=== PATIENT | female | born 1955 | race Caucasian/White ===

== ENCOUNTER 2025-08-12 19:39 | Emergency (ER) | payer MEDICARE, OTHER, SELFPAY ==
--- OUTSIDE RECORDS SUMMARY | 2024-10-11 11:07 | XMS_ITS | Continuity of Care Document ---
Author Organization ANDREE Castillo Address [address] [facility] [address] [place] [address] Phone Care Team Providers Care Residential Coordinator Name Role Phone No Information Unavailable Unavailable Allergies, Adverse Reactions, Alerts Substance Reaction Status Criticality BUPROPION HCL Active No Information Sulfa (Sulfonamide Antibiotics) Rash Active No Information Penicillins Rash Active No Information Advance Directives Directive Yes / No Effective Date File Name No Information Encounters Encounter Description Practice Location Reason(s) For Visit Diagnoses Date Provider Providers Copied on Encounter ANDREE Castillo, [address] [facility] [address], [place], [id number], tel:[phone] No Information 4 No Information ANDREE Castillo, [address] [facility] [address], [place], [id number], tel:[phone] [facility] No Information 4 RN RN. [address] [facility], [address], [place], [id number], [place]. tel:[phone] Family History Family Member Type Diagnosis Age At Onset No Information Payers Payer name Insurance type Covered democrat ID Authoriza tion(s) No Information Social History Type Description Quantity Date Captured Comments Sex Female Smoking Status No Information Chief Complaint And Reason For Visit No Information Reason For Referral Reason For Referral No Information History Of Present Illness Encounter Date Complaint History Of Prese nt Illness No Information Functional Status Date Functional Assessmen t No Information Instructions Date Instruction Additional Infor mation No Information Assessments Type Assessment Date No Information Patient Care Teams Name Effective Dates (start - stop) Status Members No Information
--- OUTSIDE RECORDS SUMMARY | 2024-10-11 11:07 | XMS_ITS | Continuity of Care Document ---
Author Organization ANDREE Castillo Address [address] [facility] [address] [place] [address] Phone Care Team Providers Care Machine Sweeper Brush Maker Name Role Phone No Information Unavailable Unavailable Allergies, Adverse Reactions, Alerts Substance Reaction Status Criticality BUPROPION HCL Active No Information Sulfa (Sulfonamide Antibiotics) Rash Active No Information Penicillins Rash Active No Information Advance Directives Directive Yes / No Effective Date File Name No Information Encounters Encounter Description Practice Location Reason(s) For Visit Diagnoses Date Provider Providers Copied on Encounter ANDREE Castillo, [address] [facility] [address], [place], [id number], tel:[phone] No Information 4 No Information ANDREE Castillo, [address] [facility] [address], [place], [id number], tel:[phone] [facility] No Information 4 RN RN. [address] [facility], [place], [id number], [place]. tel:[phone] Family History Family Member Type Diagnosis Age At Onset No Information Payers Payer name Insurance type Covered constitution party ID Authoriza tion(s) No Information Social History [...]
--- OUTSIDE RECORDS SUMMARY | 2025-08-07 09:51 | XMS_ITS | Encounter Summary ---
Author Organization [facility] Address [address] [place] [address] Care Team Providers Care Sole Sewer Hand Name Role Phone None, None M.D. Primary Care Provider Unavailabl e Reason for Visit * Auth/Cert (Routine) Specialty Diagnoses / Procedures Referred By Elisabeth t Referred To Contact Diagnoses LUMBAR RADICULOPATHY Procedures INJECTION OF EPIDURAL STEROID CAUDAL Referral ID Status Reason Start Date Expiration Date Visits Re quested Visits Authorized [id number] 1 1 Encounter Details Date Type Department Care Team (Late st Contact Info) Description 08/07/2025 9:51 AM CDT - 08/07/2025 10:[place] [address] Jose Parker, DKaitlynnO. [address] [place] [address] INJECTION OF EPIDURAL STEROID CAUDAL Social History Tobacco Use Types Packs/Day Years Used Date Smoking Tobacco: Every Day Cigarettes Comments No Sex and Gender Information Value Date Recorded Sex Assigned at Not on file Legal Sex Female 1:31 PM CDT Gender Identity Not on file Sexual Orientation Not on file documented as of this encounter Discharge Instructions * Discharge Instructions* Marie Granados R.N. - 08/07/2025 10:16 AM CDT Instructions On How to Care For Yourself At Home Following - Injections Activity Resume normal light duty activities. Avoid such activities as heavy lifting, heavy work, repetitivebending, or sport activities for 72 hours. Pain You may experience increased discomfort for 24-72 hours post injection. Some bruising, swelling, and tenderness at the injection site is normal. Apply ice (no heat for 48 hours) and take prescribed pain medication or Tylenol for discomfort. Diet Resume your normal diet. Medications If you received any mind-altering drugs for your procedure, you should observe the following: DO NOT drive or operate machinery for remainder of the day. DO NOT make important personal or business decisions, or sign legal documents for 24 hours. DO NOT drink any alcoholic beverages for the remainder of the day as this might increase your sedation level and your ability to think and react appropriately. When to call If any of the following symptoms occur, notify your physician: If you observe excessive swelling, redness, warmth, or any drainage from your injection site. If you develop a temperature greater than 101. If you develop uncontrolled pain. If you develop any rash. If you develop a severe headache. In case of an emergency, please go to your nearest emergency facility. Thank you for choosing [facility] for your care. * Discharge Instr - Other Orders* Marie Granados R.N. - 08/07/2025 11:01 AM CDT Your Surgical Care TEAM today: Surgeon: Dr. Parker Day Surgery Nurse: DANY Tyler & DANY Salazar Surgery Nurse: DANY Peralta documented in this encounter Medications at Time of Discharge DULoxetine (Cymbalta) 60 MG capsule Take 1 capsule by mouth once daily. As prescribed from PCP diphenhydrAMINE- acetaminophen (Tylenol PM) 25-500 MG TABS Take 1 tablet by mouth at bedtime as needed. Takes 1-2 tabs at bedtime as needed cyclobenzaprine (Flexeril) 10 MG tablet Take 1 tablet by mouth 3 times daily as needed for Spasms. Patient states takes one tablet 3x week, presecribed by [facility] ibuprofen (Motrin) 200 MG tablet Take 1 tablet by mouth every 6 hours as needed for Pain. Patient states takes daily, 3-4 tabs per day, neer over 8 morphine 15 MG IR tablet Take 1 tablet by mouth every 4 hours as needed for Pain. Takes one tab TID, prescibed by [facility] documented as of this encounter H&P Notes * Jose Parker D.O. - 08/07/2025 10:10 AM CDT Patient informed consent obtained for additional practitioner performing important tasks related tothe surgery, or examinations or invasive procedures for educational and training purposes. Role: N/A. I have reviewed the History and Physical and examined the patient. There are no changes that are relevant to the planned course of treatment. documented in this encounter Procedure Notes * Jose Parker D.O. - 08/07/2025 12:00 AM CDT DATE OF SERVICE 08/07/2025 DIAGNOSIS Lumbar radiculopathy, right greater than left side with osseous stenosis, subluxation of the lumbarspine. POSTOPERATIVE DIAGNOSIS Lumbar radiculopathy, right greater than left side with osseous stenosis, subluxation of the lumbarspine. INDICATIONS The patient has a history of persistent pain over an extended period of time that has been unresponsive to more conservative treatment including rest, exercise, analgesic medication. The patient [facility] by Shanta Torres NP, on July 13, 2025, and assessed as having lumbar radiculopathy with associated lumbar spondylosis and multilevel degenerativedisk disease, facet arthropathy. She had a broad-based far right lateral disk protrusion at L5-S1. L4-5 showed a left greater than right lateral recess narrowing and bilateral neural foraminal stenosis and a left L4-5 disk protrusion. She has been unresponsive to rest, exercise, analgesic medication, and adjunctive medications and comes in today for a lumbosacral epidural. DISCUSSION The patient is being seen at the [facility] for a fluoroscopic-guided pain interventional procedure. The risk and benefits of the procedure were explained and the patient's questions were answered to their satisfaction prior to the procedure. An informed consent was obtained and signed. An IV was not started and conscious sedation was not given. The patient's vital signs were obtained prior, during and postprocedure. The patient vital signs remained stable throughout and postprocedure. The skin was prepped and draped in a sterile fashion with chlorhexidine solution. The procedures described below were performed under fluoroscopic guidance. The patient remained alert and conversant throughout the procedure. Postprocedure they were returned to the recovery area for further observation. The fluoroscopic images obtained during the course of the procedure were saved to hard copy via PACS. CONSCIOUS SEDATION No IV conscious sedation was given during the course of the procedure. ANALGESIC EFFECT The patient's pain on admission was 8/10. Postprocedure their pain was down to 2-3/10. FLUOROSCOPY TIME 15 seconds. COMPLICATIONS None. FOLLOW-UP INSTRUCTIONS Postprocedure the patient was observed in a holding area. Vital signs were obtained. The patient was informed of the usual postprocedural symptoms such as increased local pain and/or stiffness generally over the next 24 to 72 hours. They were advised to resume their previous medications and contactus if additional pain medication is needed. Additional instructions and precautions were given pertaining to their condition. Driving, strenuous physical activity (work or recreational) was restricted the day of the procedure with anticipation they could resume their preprocedure activities within the next 24 hours. They were instructed to call our office through the 24-hour answering service if any problems arise. They were advised to contact our office to report the results of their injectionand/or any questions concerning the procedure. They were further advised schedule a follow-up appointment within the next few weeks for further evaluation and management. The patient was discharged from the outpatient facility in stable condition. The patient is being referred by Shanta Torres NP, and a copy of this report is being sentto her. The patient was advised to contact their health care provider to relate the results of the procedure and for further treatment instructions. They were also advised that they could contact myself, if they perceived they were experiencing any postprocedural signs, symptoms and/or adverse side effects. PROCEDURE Lumbosacral Epidural with Catheterization Technique to the bilateral L4-L5 and L5-S1 levels: The patient was placed in a prone position on the C-arm table with a pillow under the abdomen. The lower extremities were abducted and hips internally rotated to relax the gluteal muscles. The coccyxwas palpated with the middle finger of my nondominant hand so that the PIP joint lay between the sacral cornu just inferior to the sacral hiatus and/or the sacral hiatus was palpated. A 25 gauge 1-1/2-inch needle with 1 mL of buffered 1% lidocaine was used to anesthetize the superficial soft tissuestructures over the target site. A 18- gauge 3-inch RX Coude' curved tip spinal needle was inserted at a 45-degree angle into the sacral hiatus with the bevel of the needle turned downward. It was then advanced through the sacrococcygeal ligament until bony contact was made. The needle tip was then carefully withdrawn and disengaged from the periosteum, the angle of the needle was readjusted and turned upward. It was then redirected rostrally approximately 0.5 cm beyond the sacrococcygeal ligamen t. Once advanced into the sacral canal 1 mL of air was injected and accepted without resistance to confirm positioning of the introducer needle into the epidural space. Care was taken not to advance the needle rostrally any further than the inferior aspect of S3 vertebrae. Once the needle was satisfactorily positioned, careful aspiration was performed and found to be negative for blood or CSF fluid. A 21-gauge spring guided reinforced Versa-catheter was inserted through the introducer needle and advanced up epidural space under fluoroscopic guidance initially to the left L5-S1 level. Once correctly positioned, a lumbar epidurogram was carried out with up to 1 mL of Omnipaque 300 contrast solution. There was filling into the left L5-S1 neural foramen up to the L4-L5 intervertebral disk space and existing L5 nerve root. Once I proceeded to inject 0.5 mL of lidocaine, there were no signs of neurotoxicity, vascular, or subarachnoid uptake on epidurography, I proceeded with further manipulation of the epidural catheter. The catheter was slowly guided to the site of pathology as determined by MRI, CT, and/or patient symptoms. Upon positioning of the catheter in the appropriate location and following the absence of any subdural, subarachnoid, and/or intravascular uptake of contrast on repeat epidurogram, I proceeded with an injection of 1.0 mL of 6 mg/mL betamethasone on the left side followed by 2 mL of 1% lidocaine followed a saline flush. The catheter was withdrawn, checked for intactness. I then removed the catheter, readjusted the introducer needle, reinserted the 21-gauge spring guided reinforced Versa- catheter, advanced it up to the right L4-L5 level. Once correctly positioned, Omnipaque 300 was instilled. There was filling up into the L4-L5 neural foramen on the rightside over the L4-L5 disk posteriorly and traversing L5 nerve root and exiting L5 nerve root fillinginto the right L5-S1 neural foramen. This was followed by 2 mL of 6 mg/mL of betamethasone, 3 mL of1% lidocaine followed by saline flush. There were no signs of neurotoxicity, vascular, or subarachnoid uptake. The patient had no complications or side effects. The catheter was removed, checked for intactness. The patient remained alert and conversant throughout the procedure. Post procedure, they were returned to the recovery area for further observation. The patient was observed in the recovery area for a minimum of 30 minutes for any signs of neurologic deficits (i.e. motor weakness) and for adequate pain relief. Following the absence of any observable complications, the patient was ambulated and discharged home. Carolyn Valle V: [id number] J: [id number] c: Shanta Torres NP documented in this encounter Plan of Treatment Not on file documented as of this encounter Procedures Procedure Name Priority Date/Time Associated Diagnosis Comments XR FLUOROSCOPIC GUIDANCE IN THE OR Routine 08/07/2025 11:22 AM CDT Pain INJECTION OF EPIDURAL STEROID CAUDAL 08/07/2025 10:56 AM CDT LUMBAR RADICULOPATHY Case Notes ADJ TO 30 MIN TOTAL Special Needs 2nd signPhillips documented in this encounter Results * XR Fluoroscopic Guidance in the OR (08/07/2025 11:22 AM CDT) Narrative [facility] - 08/07/2025 11:22 AM CDT Please refer to the NOTES/TRANS Tab for FINAL DOCUMENTATION on this patient order. us Jose Parker D.O. GENERAL IMAGING Final Result [facility] [address] [place] [address] documented in this encounter Visit Diagnoses Not on filedocumented in this encounter Admitting Diagnoses Diagnosis Lumbar radiculopathy Thoracic or lumbosacral neuritis or radiculitis, unspecified documented in this encounter Administered Medications Inactive Administered Medications - up to 3 most recent administrations Medication Order MAR Action Action Date Dose Rate Site betamethasone acetate-betamethasone sodium phosphate (Celestone soluspan) injection intraop as needed, Starting on Wed08/07/25 at 1120, Until Wed08/07/25 at 1350, Routine Given $$ 08/07/2025 11:20 AM CDT 18 mg diazepam (Valium) 2 mg dose 2 mg, Oral, as needed, 2 doses, Starting on Wed08/07/25 at 1015, Until Wed08/07/25 at 1350, Agitation/Anxiety - Use 1st, Routine iohexol (Omnipaque) 300 MG/ML injection intraop as needed, Starting on Wed08/07/25 at 1119, Until Wed08/07/25 at 1350, Routine Given $$ 08/07/2025 11:20 AM CDT 3 mL Given $$ 08/07/2025 11:19 AM CDT 3 mL lidocaine (PF) (Xylocaine) 1 % 0.1-2 mL injection 0.1-2 mL, Infiltration, prn (ND), Starting on Wed08/07/25 at 1015, Until Wed08/07/25 at 1350, IV Start, Routine lidocaine (PF) (Xylocaine) 1 % 30 mL intraop as needed, Starting on Wed08/07/25 at 1120, Until Wed08/07/25 at 1350, Routine Given $$ 08/07/2025 11:20 AM CDT 10 mL documented in this encounter Active and Recently Administered Medications Times are shown in CDT. PRN Medication Order 08/05/2025 08/06/2025 08/07/2025 betamethasone acetate-betamethasone sodium phosphate (Celestone soluspan) injection intraop as needed, Starting on Wed08/07/25 at 1120, Until Wed08/07/25 at 1350, Routine 1120 (Given $$ - Pro vider: Jose Parker D.O.) diazepam (Valium) 2 mg dose 2 mg, Oral, as needed, 2 doses, Starting on Wed08/07/25 at 1015, Until Wed08/07/25 at 1350, Agitation/Anxiety - Use 1st, Routine iohexol (Omnipaque) 300 MG/ML injection intraop as needed, Starting on Wed08/07/25 at 1119, Until Wed08/07/25 at 1350, Routine 1119 (Given $$ - Pro vider: Jose Parker D.O.)1120 (Given $$ - Provider: Jose Parker D.O.) lidocaine (PF) (Xylocaine) 1 % 0.1-2 mL injection 0.1-2 mL, Infiltration, prn (ND), Starting on Wed08/07/25 at 1015, Until Wed08/07/25 at 1350, IV Start, Routine lidocaine (PF) (Xylocaine) 1 % 30 mL intraop as needed, Starting on Wed08/07/25 at 1120, Until Wed08/07/25 at 1350, Routine 1120 (Given $$ - Pro vider: Jose Parker D.O.) documented in this encounter Care Teams Sole Sewer Hand Relationship Specialty Start Date End Date None, None, Anna SAMAYOA PCP - General 04/07/24 documented as of this encounter
--- OUTSIDE RECORDS SUMMARY | 2025-08-07 10:06 | XMS_ITS | Encounter Summary ---
Author Organization [facility] Address [address] [place] [address] Care Team Providers Care Transcripter Name Role Phone None, None M.D. Primary Care Provider Unavailabl e Reason for Visit * Auth/Cert (Routine) Specialty Diagnoses / Procedures Referred By Contac t Referred To Contact Diagnoses LUMBAR RADICULOPATHY Procedures INJECTION OF EPIDURAL STEROID CAUDAL Referral ID Status Reason Start Date Expiration Date Visits Re quested Visits Authorized [id number] 1 1 Encounter Details Date Type Department Care Team (Late st Contact Info) Description 08/07/2025 10:06 AM CDT - 08/07/2025 11:41 AM CDT Hospital Encounter [address] [address] Jose Parker, AnaOKaitlynn [address] [place] [phone] Discharge Disposition: Discharge to Home Social History Tobacco Use Types Packs/Day Years Used Date Smoking Tobacco: Every Day Cigarettes Comments No Sex and Gender Information Value Date Recorded Sex Assigned at Not on file Legal Sex Female 1:31 PM CDT Gender Identity Not on file Sexual Orientation Not on file documented as of this encounter Last Filed Vital Signs Vital Sign Reading Time Taken Comments Blood Pressure 157/84 08/07/2025 11:28 AM CDT Pulse 74 08/07/2025 11:28 AM CDT Temperature 36.2 C (97.1 F) 08/07/2025 11:28 AM CDT Respiratory Rate 16 08/07/2025 11:28 AM CDT Oxygen Saturation 99% 08/07/2025 11:28 AM CDT Inhaled Oxygen Concentration - - Weight 107 kg (236 lb) 08/07/2025 10:31 AM CDT Height 162.6 cm (5' 4) 08/07/2025 10:31 AM CDT Body Mass Index 40.51 08/07/2025 10:31 AM CDT documented in this encounter Discharge Instructions * Discharge Instructions* [...] nearest emergency facility. Thank you for choosing [facility] for your care. * Discharge Instr - Other Orders* Marie Granados R.N. - 08/07/2025 11:01 AM CDT Your Surgical Care TEAM today: Surgeon: Dr. Parker Day Surgery Nurse: Nayeli RN & Marie usps letter carrier Nurse: DANY Peralta documented in this encounter [...] takes one tablet 3x week, presecribed by [facility] ibuprofen (Motrin) 200 MG tablet Take 1 tablet by mouth every 6 hours as needed for Pain. Patient states takes daily, 3-4 tabs per day, neer over 8 morphine 15 MG IR tablet Take 1 tablet by mouth every 4 hours as needed for Pain. Takes one tab TID, prescibed by [facility] documented as of this encounter H&P Notes [...] The patient is being seen at the [facility] for a fluoroscopic-guided pain interventional [...] ambulated and discharged home. Carolyn Valle V: [id number] J: [phone] c: Shanta Torres NP documented in this [...] the OR (08/07/2025 11:22 AM CDT) Narrative [facility] - 08/07/2025 11:22 AM CDT Please refer to the NOTES/TRANS Tab for FINAL DOCUMENTATION on this patient order. us Jose Parker D.O. GENERAL IMAGING Final Result Performing Organization Address City/State/[facility] Co de Phone Number [address] [address] documented in this encounter Visit Diagnoses Diagnosis Lumbar radiculopathy- Primary Thoracic or lumbosacral neuritis or radiculitis, unspecified Pain Generalized pain documented in this encounter Admitting Diagnoses Diagnosis Lumbar [...] D.O.) documented in this encounter Care Teams Transcripter Relationship Specialty Start Date End Date None, None, MJorge A SAMAYOA PCP - General 04/07/24 documented as of this encounter
[2025-08-12 19:49] VITALS: BP 135/81; PULSE 89; RESP 16; TEMP 36.6; O2SAT 97; BMI 44.4
--- NOTE | 2025-08-12 20:27 | ED_ITS ---
HPI - General Adult General Chief complaint: Diarrhea Stated complaint: Complications since cortisol shot Time Seen by Provider: 08/12/25 20:26 History of Present Illness HPI narrative: Patient here with diarrhea starting on Wednesday. Has become incontinent. No fever, no vomiting ( slightly nauseated), no blood in stool, no abdominal pain. Had a cortisone shot on Wednesday but this isn't the first time she has had this done. 69-year-old woman presenting to the emergency department now day 2 of diarrhea. To the point of incontinence. Just runs out over without any warning. Not even gurgling stomach. Does not have abdominal cramping. Has not had any fever. She has not noticed any hematochezia or melena. Is becoming thirsty. She has not really been eating as nothing really tastes good. No known exposures. Did have injections in her low back bilaterally. These were cortisone injections and were done 5 days ago. Has received these before without any issue. Did have her usual symptoms including some what sounds like facial flushing. Has discussing differential, does mention later that she has had a history of C diff. This does not have the accompanying cramping so she thinks that is unlikely. Related Data Home Medications ?Medication ?Instructions ?Recorded ?Confirmed albuterol sulfate 90 mcg/actuation 2 puff inhalation Q 6H PRN 09/21/24 09/21/24 aerosol inhaler cyclobenzaprine 10 mg tablet 10 mg PO TID 09/21/2403/10 duloxetine 60 mg capsule,delayed 60 mg PO QDAY 4 09/21/24 release lamotrigine 150 mg tablet 150 mg PO QDAY 09/21/2403/10 omeprazole 20 mg capsule,delayed 40 mg PO QDAY 4 09/21/24 release topiramate 50 mg capsule,extended 50 mg PO BID 4 09/21/24 release 24 hr Previous Rx's ?Medication ?Instructions ?Recorded morphine 15 mg tablet,extended 15 mg PO Q8H #90 tabs 1 12/12/23 release Allergies Allergy/AdvReac Type Severity Reaction Status Date / Time Penicillins Allergy Intermediate Hives Verified 09/21/24 15:37 Sulfa (Sulfonamide Allergy Intermediate Hives Verified 09/21/24 15:37 Antibiotics) rosuvastatin Allergy Unknown Swelling Verified 09/21/24 15:37 [id number] Reductase Allergy Unknown Muscle Pain Verified 09/21/24 15:37 Inhibitor bupropion AdvReac Unknown Moodiness Verified 09/21/24 15:37 meperidine (From Demerol) AdvReac Unknown Agitated Verified 09/21/24 15:37 Review of Systems Status of ROS: Reports: 6 or more systems reviewed and unremarkable except as noted in History and below PFSH [facility] Medical History Bipolar 2 disorder ?F31.81 - Bipolar II disorder (ICD-10) Allergic rhinitis ?J30.9 - Allergic rhinitis, unspecified (ICD-10) History of bone density study ?Z92.89 - Personal history of other medical treatment (ICD-10) Urinary incontinence ?R32 - Unspecified urinary incontinence (ICD-10) Right knee pain ?M25.561 - Pain in right knee (ICD-10) LEELA (obstructive sleep apnea) ?G47.33 - Obstructive sleep apnea (adult) (pediatric) (ICD-10) Morbid obesity ?E66.01 - Morbid (severe) obesity due to excess calories (ICD-10) Migraines ?G43.909 - Migraine, unspecified, not intractable, without status migrainosus (ICD-10) GERD (gastroesophageal reflux disease) ?K21.9 - Gastro-esophageal reflux disease without esophagitis (ICD-10) Fibromyalgia ?M79.7 - Fibromyalgia (ICD-10) Depression ?F32.A - Depression, unspecified (ICD-10) Chronic narcotic use ?F11.90 - Opioid use, unspecified, uncomplicated (ICD-10) Anxiety ?F41.9 - Anxiety disorder, unspecified (ICD-10) Alcoholism in remission ?F10.21 - Alcohol dependence, in remission (ICD-10) Lower leg edema ?R60.0 - Localized edema (ICD-10) Dyslipidemia ?E78.5 - Hyperlipidemia, unspecified (ICD-10) Hypertension ?I10 - Essential (primary) hypertension (ICD-10) Low back pain ?M54.50 - Low back pain, unspecified (ICD-10) Surgical History History of tubal ligation (1991) ?Z98.51 - Tubal ligation status (ICD-10) History of hysterectomy (1992) ?Z90.710 - Acquired absence of both cervix and uterus (ICD-10) History of selective injection of anesthetic agent around lumbar nerve root (~04/2024) ?Z98.890 - Other specified postprocedural states (ICD-10) Family History Father Alcohol dependence Anxiety and depression Mother Pacemaker Skin cancer Mitral valve replaced, Onset Age: 73 Sister Skin cancer Brother Diabetes Anxiety and depression Drug dependence Aunt Migraine Breast cancer, Onset Age: 82 Daughter Anxiety and depression Aunt Breast cancer, Onset Age: 40 Colon cancer, Onset Age: 75 Other Obesity Social History Narrative: , retired from daycare/retail/group homes, 4 children, in [place] Does not exercise Ex-smoker, quit 08/2024, history 7.5 pack years (15 x 0.5 packs) Does not drink alcohol quit alcohol use 40 years ago. Was alcoholic What is your current living situation?: I have a place to live at present, but am concerned about future Problems where you live: no known problems In the past 12 months, utilities in danger of being shut off: unable to answer In past 12 months, lack of transportation kept you from medical appts, meetings, work, or getting things needed for daily living: no In the past 12 mos, have been you worried that your food would run out before you had money to buy more?: unable to answer In the past 12 mos, the food you bought just didn't last and you didn't have money to buy more?: unable to answer Smoking Status: Never smoker How often do you have a drink containing alcohol: never AUDIT-C Alcohol total score: 0 Non-prescribed substance use: denies use How often does anyone, including family, friends and others, physically hurt you : never How often does anyone, including family, friends and others, insult or talk down to you: sometimes How often does anyone, including family, friends and others, threaten you with harm: sometimes How often does anyone, including family, friends and others, scream or curse at you: rarely Health Related Social Needs: housing instability, housed, with risk of homelessness (Z59.811) and Other personal risk factors, not elsewhere classified (Z91.89) Exam Narrative: Exam Narrative: Pleasant. NAD. Skin is warm and dry. She is well-perfused. No lower extremity edema. Breathing easily. Lungs are clear. Heart in regular rate and rhythm. Abdomen is soft and little uncomfortable across the low abdomen but without clear location of pain. Sites of injection in the low back would look to be likely facet location. They are not inflamed nor particularly tender. Const: Vital Signs, click to edit/add: Vital Signs - 24 hr 08/12/25 19:49 08/12/25 22:12 Temperature 97.9 F Pulse Rate 62 Pulse Rate [Pulse Oximeter] 89 Respiratory Rate 16 16 Blood Pressure 129/52 L Blood Pressure [Ri ght Upper Arm] 135/81 Pulse Oximetry 97 98 Oxygen Delivery Me thod Room Air Room Air Documenting provider has reviewed patient's vital signs: yes Course Vital Signs Vital signs: Initial Vital Signs Temperature 97.9 F 08/12/25 19:49 Temperature Source Oral 08/12/25 19:49 Pulse Rate 89 08/12/25 19:49 Respiratory Rate 16 08/12/25 19:49 Blood Pressure 135/81 08/12/25 19:49 Blood Pressure Mean 99 08/12/25 19:49 Blood Pressure Position Sitting 08/12/25 19:49 Pulse Oximetry 97 08/12/25 19:49 Oxygen Delivery Method Room Air 08/12/25 19:49 Vital Signs Temperature 97.9 F 08/12/25 19:49 Pulse Rate 89 08/12/25 19:49 Respiratory Rate 16 08/12/25 19:49 Blood Pressure 135/81 08/12/25 19:49 Pulse Oximetry 97 08/12/25 19:49 Oxygen Delivery Method Room Air 08/12/25 19:49 Temperature 97.9 F 08/12/25 19:49 Pulse Rate 62 08/12/25 22:12 Respiratory Rate 16 08/12/25 22:12 Blood Pressure 129/52 L 08/12/25 22:12 Pulse Oximetry 98 08/12/25 22:12 Oxygen Delivery Method Room Air 08/12/25 22:12 Medications Administered Medications: Discontinued Medications Generic Name Dose Route Start Last Admin Trade Name Freq PRN Reason Stop Dose Admin Sodium Chloride 1,000 mls @ 1,000 mls/hr 08/12/25 20:47 08/12/25 21:54 0.9 % Sodium Chloride 1000 Ml IV 08/12/25 21:46 Infused .Q1H ONE Infusion Loperamide HCl 4 mg 08/12/25 21:58 08/12/25 22:10 Loperamide Hcl 2 Mg Capsule PO 08/12/25 21:59 4 mg ONCE ONE Administration Medical Decision Making MDM Narrative Medical decision making narrative: As noted did reveal later that has had Clostridium difficile before. I think symptoms would seem to be less likely to be that but certainly possible. Otherwise unspecified likely viral diarrhea this point. I think less likely to have diverticulitis with possible. The lack of control of bowels that she is describing is certainly concerning in the setting of the injections although they do not appear to have been epidurals. I think will focus on some rehydration, symptom relief, and check for red flags in labs. Stool culture I did return later for rectal exam and she does have good rectal tone. IV was established and did receive a L normal saline. Did get enough for C diff but not enough for stool culture otherwise. Labs are reassuring with normal white count and with lack of significant abdominal pain I think less likely to have significant colitis. Was given a dose of loperamide as well. Is improved on reassessment. Feels able to leave the emergency department. See patient discharge plan for further discussion Stay well-hydrated. Consider those powdered electrolyte drinks in the short term if the diarrhea is continuing. Be seen for marked increase in persistent abdominal pain, associated fever, diarrhea lasting a week. As long as you are not experiencing a fever nor seeing blood in your stool, you can try loperamide to slow this up. If diarrhea is continuing, you can collect a sample and return with it for analysis/stool culture. This could also go to your clinic. Medical Records Medical records reviewed: Yes I reviewed the patient's medical records Lab Data Lab results reviewed: Yes I reviewed the patient's lab results Labs: Lab Results 08/12/25 08/12/25 Range/Units 20:47 21:50 WBC 9.12 (4.50-11.00) K/uL RBC 4.39 (4.00-5.20) m/uL Hgb 13.7 (12.0-16.0) gm/dL Hct 40.0 (33.0-51.0) % MCV 91 (80-100) fL MCH 31 (26-34) pg MCHC 34 (32-36) gm/dL RDW Coeff of Andree 12.0 (11.5-15.5) % Plt Count 373 (140-440) K/uL Neut % (Auto) 50.7 (42.0-72.0) % Lymph % (Auto) 40.7 (20-44) % [place] % (Auto) 6.7 (0.0-11.0) % Eos % (Auto) 1.4 (0.0-7.0) % Baso % (Auto) 0.2 (0.0-3.0) % Neut # (Auto) 4.62 (1.7-7.0) K/uL Lymph # (Auto) 3.71 H (0.90-2.90) K/uL [place] # (Auto) 0.60 (0.00-0.90) K/UL Eos # (Auto) 0.13 (0.00-0.50) K/uL Baso # (Auto) 0.02 (0.00-0.30) K/uL Abs Immat Gran (auto) 0.03 (0.00-0.30) K/uL Imm/Tot Granulo (auto) 0.3 % Sodium 135 (135-149) mmol/L Potassium 3.4 L (3.6-5.1) mmol/L Chloride 103 (96-114) mmol/L Carbon Dioxide 23 (20-32) mmol/L Anion Gap 9 (7-15) mEq/L BUN 13 (7-30) mg/dL Creatinine 0.8 (0.5-1.5) mg/dL Estimated Creat Clear 43.18 Estimated GFR 81 ml/min Glucose 116 H (60-115) mg/dL Calcium 8.8 (8.4-10.6) mg/dL Magnesium 1.9 (1.5-2.6) mg/dL Stl C. diff Tox B Gene Negative (Negative) Stl C. diff [id number] PRESUMPTIVE NEGATIVE (Negative) Discharge Plan Discharge Clinical Impression: Diarrhea Patient Disposition: Home w/ Parent or Adult Condition: Improved Additional Instructions: Stay well-hydrated. Consider those powdered electrolyte drinks in the short term if the diarrhea is continuing. Be seen for marked increase in persistent abdominal pain, associated fever, diarrhea lasting a week. As long as you are not experiencing a fever nor seeing blood in your stool, you can try loperamide to slow this up. If diarrhea is continuing, you can collect a sample and return with it for analysis/stool culture. This could also go to your clinic. Prescriptions: No Action topiramate 50 mg capsule,extended release 24hr 50 mg PO BID duloxetine 60 mg capsule,delayed release(DR/EC) 60 mg PO QDAY albuterol sulfate 90 mcg/actuation HFA aerosol inhaler 2 puff inhalation Q6H PRN cyclobenzaprine 10 mg tablet 10 mg PO TID omeprazole 20 mg capsule,delayed release(DR/EC) 40 mg PO QDAY lamotrigine 150 mg tablet 150 mg PO QDAY morphine 15 mg tablet extended release 15 mg PO Q8H Qty: 90 0RF Follow Up/Referrals: Vero Zamora MD [Primary Care Provider, Family Practice] Stand Alone Forms: [id number] Info Instructions
[2025-08-12 20:59] LABS: Hematocrit* 40.0 % (33.0-51.0); Hemoglobin* 13.7 gm/dL (12.0-16.0); Immature Granulocytes Abs Auto 0.03 K/uL (0.00-0.30); Immature Granulocytes Pct Auto 0.3 %; Lymphocytes Absolute Auto 3.71 K/uL (0.90-2.90); Mean Corpuscular HGB Conc 34 gm/dL (32-36); Mean Corpuscular Hemoglobin 31 pg (26-34); Mean Corpuscular Volume 91 fL (80-100); RDW Coefficient of Variation % 12.0 % (11.5-15.5); Red Blood Count* 4.39 m/uL (4.00-5.20); White Blood Count* 9.12 K/uL (4.50-11.00)
--- OUTSIDE RECORDS SUMMARY | 2025-08-12 21:10 | XMS_ITS | Clinical Summary ---
Author Organization [facility] Address [address] [place] [id number] Care Team Providers Care Hammerer Helper Name Role Phone None, None M.D. Primary Care Provider Unavailabl e Allergies Active Allergy Reactions Criticality Noted Date Comments Penicillin V Potassium Hives Medium 04/06/2024 Statins Other 04/06/2024 cramps Sulfadiazine Hives 04/06/2024 Bupropion Hcl Mental Status Changes Medium 04/06/2024 Aggression with wellbutrin Medications DULoxetine (Cymbalta) 60 MG capsule Take 1 capsule by mouth once daily. As prescribed from PCP Active diphenhydrAMINE -acetaminophen (Tylenol PM) 25-500 MG TABS Take 1 tablet by mouth at bedtime as needed. Takes 1-2 tabs at bedtime as needed Active cyclobenzaprine (Flexeril) 10 MG tablet Take 1 tablet by mouth 3 times daily as needed for Spasms. Patient states takes one tablet 3x week, presecribed by [facility] Active ibuprofen (Motrin) 200 MG tablet Take 1 tablet by mouth every 6 hours as needed for Pain. Patient states takes daily, 3-4 tabs per day, neer over 8 Active morphine 15 MG IR tablet Take 1 tablet by mouth every 4 hours as needed for Pain. Takes one tab TID, prescibed by [facility] Active Active Problems Problem Noted Date Diagnosed Date Lumbar radiculopathy 04/11/2024 Encounters Date Type Department Care Team Description 08/07/2025 10:06 AM CDT - 08/07/2025 11:41 AM CDT Hospital Encounter [facility] [address] [place] [address] Jose Parker, DDanie [phone] Discharge Disposition: Discharge to Home 08/07/2025 9:51 AM CDT - 08/07/2025 10:21 AM CDT Surgery [address] [address] Jose Parker D.O. INJECTION OF EPIDURAL STEROID CAUDAL 07/17/2025 [facility] Jose Parker D.O. from Last 3 Months Social History Tobacco Use Types Packs/Day Years Used Date Smoking Tobacco: Every Day Cigarettes Tobacco Cessation:Ready to Q uit: Not Asked; Counseling Given: Not Answered Comments No Sex and Gender Information Value Date Recorded Sex Assigned at Not on file Legal Sex Female 1:31 PM CDT Gender Identity Not on file Sexual Orientation Not on file Last Filed Vital Signs Vital Sign Reading [...] Mass Index 40.51 08/07/2025 10:31 AM CDT Plan of Treatment Health Maintenance Due Date Last Done Comments BREAST CANCER SCREENING 1957 COLOGUARD 1957 COLONOSCOPY 1957 [address] CANCER SCREENING 1957 CT COLONOGRAPHY 1957 FOBT 1957 LIPID PANEL 1957 SIGMOIDOSCOPY 1957 HEPATITIS C SCREENING 1975 RSV (60+ YEARS OF AGE or 32-36 WEEKS ) (1 - Risk 60-74 years 1-dose series) 2017 BONE DENSITY 2022 COVID-19 Vaccine ( season) 2025 08/31/2023, 07/09/2022, 02/13/2022, Additional history exists INFLUENZA (SEASONAL) (#1) 06/18/20252023, 08/06/2023, 07/23/2022, Additional history exists DTaP,Tdap,and Td Vaccines (2 - Td or Tdap) 07/31/2025 07/31/2015 ZOSTER VACCINES Completed 10/23/2022, 08/06/2022 PNEUMOCOCCAL SERIES 50+ YEARS Completed 01/04/2023, 10/18/2002 HEPATITIS B VACCINES Aged Out No long er eligible based on patient's age to complete this topic MENINGOCOCCAL B VACCINE Aged Out No l onger eligible based on patient's age to complete this topic Procedures Procedure Name Priority Date/Time Associated Diagnosis Comments XR FLUOROSCOPIC GUIDANCE IN THE OR Routine 08/07/2025 11:22 AM CDT Pain INJECTION OF EPIDURAL STEROID CAUDAL 08/07/2025 10:56 AM CDT LUMBAR RADICULOPATHY Case Notes ADJ TO 30 MIN TOTAL Special Needs 2nd signPhillips from Last 3 Months Results * XR Fluoroscopic Guidance in the OR (08/07/2025 11:22 AM CDT) Narrative [facility] - 08/07/2025 11:22 AM CDT Please refer to the NOTES/TRANS Tab for FINAL DOCUMENTATION on this patient order. us Jose Parker D.O. GENERAL IMAGING Final Result Performing Organization Address City/State/[facility] Co de Phone Number [facility] [address] [place] [address] from Last 3 Months Insurance * Guarantor: Paty Schaeffer Account Type Relation to Patient Date of Phone Billing Address Personal/Family Self 1955 [id number] [place] [address] MEDICARE [facility] Care Teams Hammerer Helper Relationship Specialty Start Date End Date None, None, M.Ana [place] PCP - General 04/07/24
--- OUTSIDE RECORDS SUMMARY | 2025-08-12 21:10 | XMS_ITS | Encounter Summary ---
Author Organization [facility] Address [address] [place] [address] Care Team Providers Care Production Metal Sprayer Name Role Phone None, None M.DKaitlynn Primary Care Provider Unavailabl e Encounter Details Date Type Department Care Team (Late st Contact Info) Description 07/17/2025 Pre[facility] Jose Parker D.O. [address] [place] [address] [address] [place], [place] [id number] Social History Tobacco Use Types Packs/Day Years Used Date Smoking Tobacco: Every Day Cigarettes Comments No Sex and Gender Information Value Date Recorded Sex Assigned at Not on file Legal Sex Female 1:31 PM CDT Gender Identity Not on file Sexual Orientation Not on file documented as of this encounter Plan of Treatment Not on file documented as of this encounter Visit Diagnoses Not on filedocumented in this encounter Care Teams Production Metal Sprayer Relationship Specialty Start Date End Date None, None, Anna SAMAYOA PCP - General 04/07/24 documented as of this encounter
--- OUTSIDE RECORDS SUMMARY | 2025-08-12 21:10 | XMS_ITS | Clinical Summary ---
Author Organization [facility] - [facility] [place] [address] Care Team Providers Care Physical Biochemist Name Role Phone Allison New MD Primary Care Provider [phone] [facility] EMR consists of medical records from all [facility] ([facility]), the [facility]. ([facility]), [facility], as well as other affiliates or partners, to include: [facility] in [place], [place], [facility], [facility], [facility], [facility], [facility], [facility]), [facility], and [facility]. The EMR may not contain all information available for this patient pursuant to the Care Everywhere program, as well as varying phases of implementation.[facility] Allergies Active Allergy Reactions Criticality Noted Date Comments Bupropion Hcl OTHER 08/16/2013 severe aggression Meperidine AGITATION 09/12/2013 Penicillins RASH/ITCHING 08/16/2013 Statins MYALGIA 08/16/2013 Sulfa Drugs RASH/ITCHING 08/16/2013 Medications * Medications may not be up to date as of this document. Always verifycurrent medications with the patient. BIOTIN PO Active cyanocobalamin (VITAMIN B-12) 1000 MCG tab Take 1,000 mcg by mouth one time daily. Active duloxetine (CYMBALTA) 60 MG delayed release cap Take 60 mg by mouth one time daily. Active diphenhydrAMINE -APAP (sleep) 25-500 MG per tab Take 1 tab by mouth. Active ibuprofen (MOTRIN) 600 MG tab Take 600 mg by mouth 3 times daily at mealtime. Active Acetaminophen 650 MG ER tab Take 1,300 mg by mouth one time daily. Active Topiramate (Topamax) 50 MG tab Take 1.5 tabs by mouth one time daily at bedtime. 1 Active Ascorbic Acid (Vitamin C) 500 MG ER tab Take 500 mg by mouth one time daily at bedtime. Active Omeprazole (PriLOSEC) 40 MG delayed release capIndications: per PCP in [place] Take 1 cap by mouth one time daily. Purpose: per PCP in [place] 2 Active Cholecalciferol (Vitamin D3) 25 MCG (1000 UT) tab Take 1 tab by mouth one time daily. 2 Active Turmeric 500 MG cap Take 1 cap by mouth one time daily. 0 3 Active Tocopherol (Vitamin E) 45 MG (100 UNIT) cap Take 1 cap by mouth one time daily. 0 3 Active Cyclobenzaprine HCl 10 MG tab May use 5-10mg by mouth up to three times daily as needed.. 180 tab 3 3 Active Ginkgo Biloba 40 MG tab Take 2 tabs by mouth one time daily. 4 Active Magnesium 100 MG tab Take 1 tab by mouth one time daily. 4 Active Albuterol Sulfate HFA 108 (90 Base) MCG/ACT inhaler Inhale 2 puffs every 4-6 hours as needed 54 g 3 5 Active Morphine Sulfate 15 MG ER tab Take 1 tab by mouth 3 times daily Must last 28 days. Do not start before August 04, 2025. 84 tab 5 Active Morphine Sulfate 15 MG ER tab Take 1 tab by mouth 3 times daily Must last 28 days. Do not start before July 07, 2025. 84 tab 5 07/31/20 25 Discontinu ed(Reorder ) Active Problems Problem Noted Date Diagnosed Date Chronic pain 02/13/2016 Overview (02/13/2016): Etiology and History: low back pain with radiculopathy down the right leg Consults: Spine clinic Physical therapy: she had done PT Medication History: MS Contin 15mg po TID, duloxetine 60mg po daily, pregabalin 25mg po TID. Cyclobenzaprine 5-10mg po TID prn Start date of controlled medications: 09/16/15 Any history of infractions or concerning usage of medication? none Name and location of designated pharmacy: [facility] [place] on [address] Name of designee(s)able to picking crew supervisor prescriptions: Ken Schaeffer Opioid prescription and maximum monthly quantity: MS Mario 15mg po TID #84 for 28 day supply Contingency plan for treatment outside of PCP office: call the clinic. Right-sided low back pain without sciatica 10/31 Fibromyalgia syndrome 10/13/2013 Hormone replacement therapy 09/12/2013 Overview (09/12/2013): For hotflashes. Initiated in 1997. Migraine Overview (08/16/2013): chiropractic, Topamax Esophageal reflux Allergic rhinitis Other and unspecified hyperlipidemia MDD (major depressive disord er), recurrent episode, moderate Anxiety state, unspecified Immunizations Immunization Administration Dates Next Due COVID-19 (MODERNA 12+YR) MRN A, LNP-S, PF, 50 MCG/0.5 ML VACCINE 08/31/2023 COVID-19(MODERNA Bivalent) m RNA, LNP-S, PF, 50mcg/0.5mL or 25mcg/0.25mL Vaccine (Historical) 07/09/2022 COVID-19(MODERNA)mRNA, LNP-S , PF, 100 mcg/0.5 mL Vaccine (Historical) 02/13/2022,09/10/2021,02/13/2021,01/16 Influenza Trivalent Vaccine 08/12/2021 Influenza, High Dose, Delicia valent, Preservative Free, Vaccine 08/06/2023 Influenza, Quadrivalent, Carey l Culture, MDCK With Preservative Vaccine 07/31/2019,08/08/2018 Influenza, Quadrivalent, Carey l Culture, MDCK, PF Vaccine 07/23/2022,08/12/2021,08/20/2020 Influenza, Quadrivalent, Pre servative Free, Vaccine 08/20/2020,07/27/2018 Influenza, Trivalent, PF Vaccine 07/23/2022,07/18,09/12/2013 Influenza,Quadrivalent,PF (0 .5 mL) Vaccine 08/12/2017 Influenza,Quadrivalent,PF (3 YR and Older) Vaccine 08/21/2016,07/31/2015,10/26/2014 Measles/Mumps/Rubella (MMR) Vaccine 10/18/1968 Pneumococcal Conjugate 20-va lent, Polysaccharide [id number] Conjugate, Adjuvant PF Vaccine 01/04/2023 Pneumococcal Polysaccharide 23 Valent (PPV-23) Vaccine (> 2 Yrs) 10/18/2002 Tetanus/Diphtheria/Acellular Pertussis (Tdap) Vaccine (> 7 Yrs) 07/31/2015 Zoster Recombinant Vaccine 10/23/2022,08/06/2022 Family History Medical History Relation Name Comments Alcohol Drug Dependency Brother 3 Ken both Alcohol Drug Dependency Brother 4 Raymundo alco hol Alcohol Drug Dependency Father alco hol Cancer Breast Maternal Aunt 2 Other Maternal Grandmother Emily on's CHD/CAD/NH Mother Cancer (not otherwise listed) Mother skin-melanoma Hypertension Paternal Aunt 4 Cancer Breast Paternal Aunt 5 Rhonda Dementia Paternal Aunt 5 Rhonda Cancer Colon Paternal Aunt 6 Erlinda Diabetes Mellitus Paternal Uncle 5 Thyroid Disease Sister 2 Cancer (not otherwise listed) Sister 3 skin-melanoma Relation Name Status Comments Brother 1 Alive Brother 2 Alive Brother 3 Ken Brother 4 Raymundo Daughter 1 Alive Daughter 2 Alive Daughter 3 Alive Father (Age 42) accident Maternal Aunt 1 Alive Maternal Aunt 2 Maternal Grandfather (Age 96) pn eumonia Maternal Grandmother (Age 80) Dennis king's Maternal Uncle 1 Alive Maternal Uncle 2 Alive Maternal Uncle 3 Alive Mother Alive Paternal Aunt 1 (Age 70's) unkno wn Paternal Aunt 2 (Age 70's) unkno wn Paternal Aunt 3 (Age 70's) unkno wn Paternal Aunt 4 Paternal Aunt 5 Rhonda Paternal Aunt 6 Erlinda Paternal Grandfather (Age young age) unknown Paternal Grandmother (Age 75) un known Paternal Uncle 1 (Age unknown) k illed in the service Paternal Uncle 2 (Age unknown) u nknown Paternal Uncle 3 (Age unknown) u nknown Paternal Uncle 4 (Age unknown) u nknown Paternal Uncle 5 Sister 1 Alive Sister 2 Sister 3 Son Alive Social History Tobacco Use Types Packs/Day Years Used Date Smoking Tobacco: Former Cigarettes 0.5 12 Smokeless Tobacco: Former Quit: 10/26/2014 Tobacco Cessation:Counseling Given: Yes Comments:tapered down to one cigarette, no more left. Alcohol Use Standard Drinks/Week Comments Yes 1.7 (1 standard drink = 0.6 oz p ure alcohol) Financial Resource Strain Answer Date R ecorded Overall Financial Strain 99 022 Skipped Doctor's Visit 3 2 Skipped Medication due to cost 3 0 12/17/2021 Utility Shut-offs 3 12/17/2021 Depression Answer Date Recorded PHQ2/9 Depression Score: 0-4 Few to No Symptoms; 5-9 Minimal Symptoms; 10-14 Minor Depression, Dysthymia; 15-19 Major Depression, moderately severe; >20 Major Depression, severe 11 09/05/2024 Comments No Sex and Gender Information Value Date Recorded Sex Assigned at Not on file Legal Sex Female 9:09 AM CDT Gender Identity Not on file Sexual Orientation Not on file Occupation Industry Job Start Date Job End Date Retired/Disablility Not on file Not on file Not on f ile Last Filed Vital Signs Vital Sign Reading Time Taken Comments Blood Pressure 116/67 08/31/2023 9:29 AM PRODUCTION QUALITY MANAGER Pulse 90 08/26/2020 8:11 AM PRODUCTION QUALITY MANAGER Temperature 36.8 C (98.2 F) 03/26/2016 12:35 PM CDT Respiratory Rate 20 08/18/2019 1:22 PM CDT Oxygen Saturation 100% 03/26/2016 1:56 PM CDT Inhaled Oxygen Concentration - - Weight 122.5 kg (270 lb) 03/06/2021 10:24 AM CDT Height 162.6 cm (5' 4) 03/17/2016 3:39 PM CDT Body Mass Index 46.35 03/17/2016 3:39 PM CDT Plan of Treatment Upcoming Encounters Date Type Department Care Team (Late st Contact Info) Description 08/22/2025 1:40 PM PRODUCTION QUALITY MANAGER Office Visit [facility] [address] [facility] Internal Medicine [address] [place] [address] Allison New MD [address] [place] [address] Health Maintenance Due Date Last Done Comments Fecal Immunohistochemical Te st (FIT) (Ages 40-75) 1955 Flexible Sigmoidoscopy (Ages 50-75) 1955 Colonoscopy-Virtual 1955 RSV Vaccination ( o r age 50+) (1 - Risk 50-74 years 1-dose series) 2007 Colonoscopy-Optical 08/12/2019 08/12/2009, 10/18/2008 (Patient Reported - Need to Obtain Outside Result) Bone Mineral Density 2022 Mammogram 01/04/2025 01/04/2023, 02/2021 (Patient Reported - Need to Obtain Outside Result), 11/04/2016, Additional history exists Influenza Vaccination (#1) 06/18/202508/07, 08/06/2023, 07/23/2022, Additional history exists DTaP/Tdap/Td Vaccination (2 - Td or Tdap) 07/31/2025 07/31/2015 Lipid Screening 09/06/2025 09/06/2020 (Zora ent Reported - Need to Obtain Outside Result), 2014, 09/15/2013, Additional history exists Colorectal Cancer Screening 09/21/2025 Multitarget Stool DNA (FIT-DNA,Cologuard) (Ages 50-75) 09/21/2025 09/21/2022, 09/21/2022, 09/04/2019, Additional history exists MMR Vaccination Completed 10/18/1968 Hepatitis C One Time Screeni ng (Age 18 to 80) Completed 09/15/2013 Zoster Vaccination Completed 10/23/2022, 08/06/2022 Pneumococcal Vaccination: 50 + Years Completed 01/04/2023, 10/18/2002 HPV Vaccination Aged Out No longer el igible based on patient's age to complete this topic Hepatitis A Vaccination Aged Out No l onger eligible based on patient's age to complete this topic Hepatitis B Vaccination Aged Out No l onger eligible based on patient's age to complete this topic Hib Vaccination Aged Out No longer el igible based on patient's age to complete this topic Meningococcal (MCV4) Vaccination Aged Out No longer eligible based on patient's age to complete this topic Meningococcal B Vaccination Aged Out No longer eligible based on patient's age to complete this topic Polio Vaccination Aged Out No longer eligible based on patient's age to complete this topic Procedures Procedure Name Priority Date/Time Associated Diagnosis Comments COLOGUARD Routine 09/21/2022 2:53 PM PRODUCTION QUALITY MANAGER Colon cancer screening MAMMOGRAM DIGITAL SCREENING BILATERAL Routine 11/04/2016 3:52 PM PRODUCTION QUALITY MANAGER Visit for screening mammogram LIPID PANEL, FASTING Routine 2014 9:10 AM PRODUCTION QUALITY MANAGER Hyperlipidemia HEPATITIS C AB WITH REFLEX TO NAAT Routine 09/15/2013 9:08 AM PRODUCTION QUALITY MANAGER Preventative health care COLONOSCOPY OPTICAL - EXTERNAL SCAN Routine 08/12/2009 from Last 3 Months or Most Recently Relevant to Health Maintenance Results * COLOGUARD (09/21/2022 2:53 PM PRODUCTION QUALITY MANAGER) Cologuard Negative [facility] Comment: NEGATIVE TEST RESULT. A negative Cologuard result indicates a low likelihood that a colorectal cancer (CRC) or advanced adenoma (adenomatous polyps with more advanced pre-malignant features) is present. The chance that a person with a negative Cologuard test has a colorectal cancer is less than 1 in 1500 (negative predictive value >99.9%) or has an advanced adenoma is less than 5.3% (negative predictive value 94.7%). These data are based on a prospective cross-sectional study of 10,000 individuals at average risk for colorectal cancer who were screened with both Cologuard and colonoscopy. (Yas Alberto al, N Engl J Med 2014;370(14):4263-1707) The normal value (reference range) for this assay is negative. COLOGUARD RE-SCREENING RECOMMENDATION: Periodic colorectal cancer screening is an important part of preventive healthcare for asymptomatic individuals at average risk for colorectal cancer. Following a negative Cologuard result, the [place] [employer] Society and U.S. Multi-Society Task Force screening guidelines recommend a Cologuard re-screening interval of 3 years. References: [place] [employer] Guideline for Colorectal Cancer Screening: https://www.cancer.org/cancer/zuxhg-pckyvl-efwxld/havvjpkiw-giofjcawg-nwdymnt/ acs-recommendations.html.; Venancio DK, Smith CR, Nathaniel MonkK, Colorectal Cancer Screening: Recommendations for Physicians and Patients from the U.S. Multi-Society Task Force on Colorectal Cancer Screening , Am J Gastroenterology 2017; 112:2966-9920. TEST DESCRIPTION: Composite algorithmic analysis of stool DNA-biomarkers with hemoglobin immunoassay. Quantitative values of individual biomarkers are not reportable and are not associated with individual biomarker result reference ranges. Cologuard is intended for colorectal cancer screening of adults of either sex, 45 years or older, who are at average-risk for colorectal cancer (CRC). Cologuard has been approved for use by the U.S. FDA. The performance of Cologuard was established in a cross sectional study of average-risk adults aged 50-84. Cologuard performance in patients ages 45 to 49 years was estimated by sub-group analysis of near-age groups. Colonoscopies performed for a positive result may find as the most clinically significant lesion: colorectal cancer [4.0%], advanced adenoma (including sessile serrated polyps greater than or equal to 1cm diameter) [20%] or non- advanced adenoma [31%]; or no colorectal neoplasia [45%]. These estimates are derived from a prospective cross-sectional screening study of 10,000 individuals at average risk for colorectal cancer who were screened with both Cologuard and colonoscopy. (Yas Azul et al, N Engl J Med 2014;370(14):2292-8534.) Cologuard may produce a false negative or false positive result (no colorectal cancer or precancerous polyp present at colonoscopy follow up). A negative Cologuard test result does not guarantee the absence of CRC or advanced adenoma (pre-cancer). The current Cologuard screening interval is every 3 years. ([place] [employer] Society and U.S. Multi-Society Task Force). Cologuard performance data in a 10,000 patient pivotal study using colonoscopy as the reference method can be accessed at the following location: www.[employer]/results. Additional description of the Cologuard test process, warnings and precautions can be found at www.Qwilrrd.com. Stool 09/21/2022 2:53 PM PRODUCTION QUALITY MANAGER 09/23/2022 1:13 PM PRODUCTION QUALITY MANAGER us Allison New MD LABORATORY Final Resul t [facility] [address] [place] [address] [place] [address] * MAMMOGRAM SCREENING BILATERAL (11/04/2016 3:52 PM PRODUCTION QUALITY MANAGER) Anatomical Region Laterality Modality Breast Bilateral Mammography 11/04/2016 4:22 PM PRODUCTION QUALITY MANAGER Impressions 11/04/2016 4:24 PM PRODUCTION QUALITY MANAGER There is no mammographic evidence of malignancy. Routine screening mammography is recommended. The exam was reviewed by a staff physician. Narrative 11/04/2016 4:24 PM PRODUCTION QUALITY MANAGER #[id number] - MAMMOGRAM DIGITAL SCREENING BILATERAL BILATERAL DIGITAL SCREENING MAMMOGRAM WITH CAD: 11/04/2016 CLINICAL: Asymptomatic screening. Comparison is made to exams dated: 08/13/2015 mammogram - [facility] and 12/04/2013 mammogram - [facility]. Current study was also evaluated with a Computer Aided Detection (CAD) system. There are scattered fibroglandular elements in both breasts that could obscure a lesion on mammography. No significant masses, calcifications, or other findings are seen in either breast. There has been no significant interval change. Dunia Lopez M.D. [facility],tiffanie/:11/04/2016 16:24:24 letter sent: BI-RADS 1 or 2 Normal Mammogram BI-RADS: 1 Negative As the teaching physician, I personally examined the radiologic study, reviewed the findings with Dr. Eri Lopez and arrived at this interpretation. Procedure Note Dunia Jhaveri MD - 11/14/2017 #[id number] - MAMMOGRAM DIGITAL SCREENING BILATERAL BILATERAL DIGITAL SCREENING MAMMOGRAM WITH CAD: 11/04/2016 CLINICAL: Asymptomatic screening. Comparison is made to exams dated: 08/13/2015 mammogram - [facility] [place] 12/04/2013 mammogram [facility]. Current study was also evaluated with a Computer Aided Detection (CAD)system. There are scattered fibroglandular elements in both breasts that couldobscure a lesion on mammography. No significant masses, calcifications, or other findings are seen ineither breast. There has been no significant interval change. Dunia Lopez M.D. [facility],tiffanie/:11/04/2016 16:24:24 letter sent: BI-RADS 1 or 2 Normal Mammogram BI-RADS: 1 Negative As the teaching physician, I personally examined the radiologic study,reviewed the findings with Dr. Eri Lopez and arrived at this interpretation. ESSION There is no mammographic evidence of malignancy. Routine screeningmammography is recommended. The exam was reviewed by a staff physician. us Allison New MD BREAST IMAGING STANDARD Fin al Result * (ABNORMAL) LIPID PANEL (2014 9:10 AM PRODUCTION QUALITY MANAGER) HDL Cholesterol 45 40 - 125 mg/dL [facility] Comment: HDL Cholesterol: NCEP ATP- III Guidelines < 40 mg/dL Low (Increased cardiovascular risk) > 60 mg/dL High (Decreased cardiovascular risk) Cholesterol 229(H) 2 - 199 mg/dL [facility] Comment: Cholesterol: NCEP ATP- III Guidelines < 200 mg/dL Acceptable 200-239 mg/dL Borderline High > 239 mg/dL High Triglycerides 269(H) 3 - 149 mg/dL [facility] Comment: Triglyceride: NCEP ATP- III Guidelines < 150 mg/dL Normal 150-199 mg/dL Borderline High 200-499 mg/dL High > 499 mg/dL Very High LDL Cholesterol, Estimated 130(H) 0 - 129 mg/dL [facility] Comment: LDL Cholesterol: NCEP ATP - III Guidelines < 100 mg/dL Optimal 100-129 mg/dL Near Optimal 130-159 mg/dL Borderline High 160-189 mg/dL High > 189 mg/dL Very High Cholesterol, Non-HDL 184(H) 0 - 129 mg/dL [facility] Comment: Non-HDL Cholesterol: NCEP ATP- III Guidelines < 130 mg/dL Desireable 130-159 mg/dL Borderline High 160-189 mg/dL High > 189 mg/dL Very High Blood specimen (specimen) 2014 9:10 AM PRODUCTION QUALITY MANAGER 2014 11:53 AM PRODUCTION QUALITY MANAGER Allison New MD LABORATORY Final Resul t Performing Organization Address [facility] de Phone Number [facility] [address] [place] [address] * HEPATITIS C AB (09/15/2013 9:08 AM PRODUCTION QUALITY MANAGER) Hepatitis C Ab Nonreactive Nonreactive [facility] Comment: This method detects the IgG antibody to Hepatitis C virus. A negative result does not exclude the possibility of exposure to HCV. There may be a delay in the production of antibodies to the virus. You may repeat the test in four to eight weeks to determine if antibodies have been produced. Blood specimen (specimen) 09/15/2013 9:08 AM PRODUCTION QUALITY MANAGER 09/15/2013 11:44 AM PRODUCTION QUALITY MANAGER Allison New MD LABORATORY Final Resul t Performing Organization Address [facility] Phone Number [facility] [address] [place] [address] * COLONOSCOPY - EXTERNAL SCAN (08/12/2009) Provider Scanning PROCEDURES Final Result from Last 3 Months or Most Recently Relevant to Health Maintenance Insurance * Guarantor: Paty Schaeffer Account Type Relation to Patient Date of Phone Billing Address Personal/Family Self 1955 [id number] [place] [address] [place] [address] * Guarantor: Paty Schaeffer Account Type Relation to Patient Date of Phone Billing Address [facility] Personal/Family Self 1955 [id number] [place] [address] MEDICARE [facility] [place] [address] Care Teams Physical Biochemist Relationship Specialty Start Date End Date Allison New MD [address] [place] [address] PCP - General Internal Medicine 08/15/13
[2025-08-12 21:19] LABS: Chloride* 103 mmol/L (96-114); Potassium* 3.4 mmol/L (3.6-5.1); Sodium* 135 mmol/L (135-149)
[2025-08-12 21:21] LABS: Slide Review Reflex No
[2025-08-12 21:22] LABS: Anion Gap 9 mEq/L (7-15); Blood Urea Nitrogen* 13 mg/dL (7-30); Calcium* 8.8 mg/dL (8.4-10.6); Carbon Dioxide* 23 mmol/L (20-32); Creatinine* 0.8 mg/dL (0.5-1.5); Est. Creatinine Clearance* 43.18; Estimated Glomerular Filt Rate 81 ml/min; Glucose* 116 mg/dL (60-115)
[2025-08-12] MEDS: LOPERAMIDE HCL 2 MG CAPSULE 4 MG PO (22:10)
[2025-08-12 22:12] VITALS: BP 129/52; PULSE 62; RESP 16; O2SAT 98
[2025-08-12 22:42] LABS: C.Difficile Negative (Negative); CDIFFEPI 027 PRESUMPTIVE NEGATIVE (Negative)
== END 2025-08-12 23:14 | disposition home or self-care (01) ==
PROVIDERS: Emergency Provider Family Medicine; PCP Family Medicine
DX: R19.7 Diarrhea, unspecified (principal)
CPT/HCPCS: 36415; 80048; 83735; 85025; 87045; 87046; 87427; 87493; 99283; 99284; A9270; J7030